=== PATIENT | female | born 1990 | race Caucasian/White ===

== ENCOUNTER 2019-07-16 17:32 | Emergency (ER) | payer OTHER, SELFPAY ==
[2019-07-16 17:32] VITALS: BP 122/77; PULSE 81; RESP 16; TEMP 36.7; BMI 27.4
--- NOTE | 2019-07-16 17:55 | ED.DCSUM_ITS ---
- ER Visit Summary Date of Service: 07/16/19 Chief Complaint: Right thumb laceration History of Present Illness: The patient is a 28 F presenting with right thumb laceration. Patient was washing a dish and cut her right thumb on a broken piece of glass. She states it was one large piece of glass. She is right- handed. Tetanus is up-to-date. No other complaints. Physical Examination: Vitals are stable. Patient is afebrile. Alert no acute distress. HEENT exam is unremarkable. Lungs are clear and equal bilaterally. Heart is regular rate and rhythm. Extremities 2 cm laceration proximal right thumb. Tendon function is intact. Normal sensation. Normal cap refill. Skin is warm and dry. No focal neurologic deficit. Remainder of exam is unremarkable. Emergency Department Course and Treatment: LET was applied. Wound was irrigated and explored. Anesthetized with local lidocaine. 4, 5-0 simple sutures were placed. Patient tolerated this well. Advised wound care instructions. Advised to return to the ED for worsening complaints. Disposition: Discharge home Impression: Right thumb laceration, laceration repair This note was generated with [employer] dictation software. It may contain incorrect words, spelling, and punctuation that were not noted in review of the chart prior to signing ED Disposition - Plan for ED Patient: Instructions: LACERATION, Hand Referrals: Monica Yoder MD [Primary Care Provider] -
--- NOTE | 2019-07-16 17:57 | ED.DEP ---
ED Disposition - Plan for ED Patient: Instructions: LACERATION, Hand Referrals: Monica Yoder MD [Primary Care Provider] -
[2019-07-16] MEDS: Lidocaine/Epi/Tetracaine 50 ML 1 APPLIC TOPICAL (18:01)
[2019-07-16 18:51] VITALS: RESP 16
--- NOTE | 2019-07-16 18:52 | ED.RN ---
REVIEWED D/C INSTRUCTIONS, FOLLOW UP CARE, AND S/S THAT WOULD WARRANT A RETURN TO THE ED WITH PT. PT VERBALIZED AN UNDERSTANDING AND DENIES FURTHER QUESTIONS FOR THIS RN. PT SKIN WARM/DRY, RESP EVEN AND UNLABORED, PT A&O X 3, NO DISTRESS NOTED. PT AMBULATED OUT OF ED, GAIT STEADY.
== END 2019-07-16 18:53 | disposition home or self-care (01) ==
LOC: ED 18:17
PROVIDERS: Emergency Provider Emergency Medicine; Family Provider Internal Medicine; PCP Internal Medicine
DX: S61.011A Laceration without foreign body of right thumb without damage to nail, initial encounter (principal); W25.XXXA Contact with sharp glass, initial encounter
CPT/HCPCS: 12001; 99284

== ENCOUNTER 2019-09-08 07:08 | Day surgery (SDC) | payer OTHER, SELFPAY ==
--- NOTE | 2019-08-23 11:24 | HP.PCM_ITS ---
History and Physical Date of Admission: 09/08/19 Silvia Caldwell Physician OPHTHALMOLOGY TECHNICIAN H&P Signed Encounter Date: 08/22/2019 Expand All Collapse All Hide copied text Moni for details Nakita Collins is a 29 year old female who presents for imbedded IUD and Polyp- requesting permanent sterilization. Pt patient had attempted removal of the Mirena IUD but was embedded in the lower endocervical canal. Patient did not tolerate the exam well without anesthesia. Patient had a polyp noted on endosee. Pt understands risk of regret with tubal ligation. Pt denies CP, SOB, dizziness. ? PAST MEDICAL HISTORY PAST MEDICAL HISTORY Diagnosis Date ? Back pain ? ? Multiple sclerosis (HCC) ? ? PAST SURGICAL HISTORY PAST SURGICAL HISTORY Procedure Laterality Date ? NONE ? ? ? PAST SURGICAL HISTORY OF Right ? ? sutures right thumb from broke glass doing dishes ? FAMILY HISTORY FAMILY HISTORY Problem Relation Age of Onset ? Cancer Mother ? ? brain-ependymoma ? Stroke Maternal Grandmother ? ? Heart Maternal Grandfather ? ? SOCIAL HISTORY Social History ? Tobacco Use ? Smoking status: Current Every Day Smoker ? ? Packs/day: 0.25 ? ? Types: Cigarettes ? Smokeless tobacco: Never Used ? Tobacco comment: smokes 5 cigs a day. Substance Use Topics ? Alcohol use: Yes ? ? Comment: rarely ? Drug use: Yes ? ? Comment: weed x 5 weekly ? CURRENT MEDICATIONS Current Outpatient Medications Medication Sig ? simethicone, chewable (MYLICON) 80 mg chewable tablet Take 1 tablet by mouth every 6 hours as needed. ? ibuprofen (MOTRIN) 600 mg tablet Take 1 tablet by mouth every 6 hours as needed. FOR PAIN. ? levonorgestrel (MIRENA) 20 mcg/24 hours (5 yrs) 52 mg IUD 1 Each by INTRAUTERINE route one time only. ? ergocalciferol, vitamin D2, (VITAMIN D2 ORAL) Take 1 tablet by mouth once daily. ? ibuprofen (IBU-200) 200 mg tablet Take 200 mg by mouth as directed. ? VITAMIN D 50,000 unit capsule Take 50,000 Units by mouth once each week. ? ? No current facility-administered medications for this visit. ? Allergies As of Date: 08/22/2019 (No Known Allergies) Fully Assessed 08/22/2019 ? ? REVIEW OF SYSTEMS Abdomen: no pain Bladder: no dysuria.. Expanded ROS: GENERAL: No weight loss, malaise or fevers Allergies and current medication updated:Yes ? EXAM: BP 110/64 Ht 5' 4.5 (1.64m) Wt 156 lb (70.8kg) BMI 26.37 kg/(m^2). ? GENERAL: pleasant, female in no apparent distress HEENT: Normocephalic, atraumatic, mucus membranes moist and no lesions NECK: full range of motion DERMATOLOGY: Normal, without lesions, non-icteric and non-hirsute CARDIAC: regular rate and rhythm CHEST: Clear to auscultation Normal inspiratory effort NEURO: alert and oriented x3,exam grossly non-focal EXTREMITIES: normal ? ASSESSMENT AND PLAN: Encounter Diagnosis ? ? ICD-10-CM ? 1. Displacement of intrauterine contraceptive device, subsequent encounter T83.32XD ? 2. Abnormal uterine bleeding (AUB) N93.9 ? 3. Endometrial polyp N84.0 ? 4. Sterilization Z30.2 ? ? Pt has been counseled on risks/benefits and alternatives of surgery including but not limited to anesthesia, bleeding, infection, injury to pelvic structures including bowel, bladder, ureters and vessels. Pt wishes to proceed with surgery at this time. ? Declines post op narcotics. Motrin and mylicon ordered ? ? Silvia Winters MD ? Office Visit on 08/22/2019
[2019-09-08 07:23] VITALS: BP 114/72; PULSE 71; RESP 16; TEMP 37; O2SAT 99; BMI 27.5
--- NOTE | 2019-09-08 07:30 | FALS_PTH ---
PATIENT: IGOR STARR LOC: [facility] [place] U#:[id number] AGE/SX: 29/F ROOM: RE09/08/[address]: Dr. Silvia Winters, MDDOB: 1990 BED: DIS: 09/08/2019 SPEC #: [id number] RECD: 09/08/19 11:18 STATUS: JOHANA REDi #: [id number] DAYANA: 09/08/19 07:[address]: Silvia Winters DEPT: SURGICAL PATHOLOGY RECD BY: Alec Gonzalez ENTERED: 09/08/19 13:24 SP TYPE: FALL TUBES OTHR DR: Dr. Monica Yoder MD Tissues: A - Fallopian tube B - Endometrium, NOS Procedures: Surgery Specimen Level II Surgery Specimen Level IV HEADER OPERATION: Hysteroscopy, D & C Symphion, polypectomy, IUD PRE-OP DIAGNOSIS: Displacement of IUD; abnormal uterine bleeding; endometrial polyp TISSUE SUBMITTED: A - Bilateral fallopian tubes, B - Endometrial curettings and polyp MICROSCOPIC DIAGNOSIS A. Right and left fallopian tubes, salpingectomies: Two complete cross-sections of fallopian tubes. Fragments of fibroma. See comment. B. Endometrium, curettings and polyp: Polypoid fragments of secretory endometrium. Scant strips of benign superficial endocervix. AM:osorio 09/09/19 COMMENT A. The fragments of fibroma are consistent with ovarian origin. Clinical correlation is suggested. MICROSCOPIC DESCRIPTION Slides are reviewed. GROSS DESCRIPTION A - Received is one container labeled with the patient's name and designated bilateral fallopian tubes. The specimen consists of two tubular pieces of pink-gil soft tissue consistent with portion of fallopian tube measuring 2 and 4 cm in length and 0.5 cm in diameter. One of the pieces of fallopian tube with fimbrial end measures 2 cm in length and 0.6 cm in diameter. Three additional pieces of tissue are also present, two of which are consistent with fimbrial end measuring in aggregate 2.5 x 2 x 0.5 cm. Sections do not reveal any mass lesion. [employer] Operator sections are submitted in two cassettes. B - Received in fixative is one container labeled with the patient's name and designated endometrial curettings and polyp. The specimen consists of multiple irregular fragments of hemorrhagic soft tissue that in aggregate measure 5 x 3 x 0.3 cm. The entire specimen is submitted in two cassettes. / SJ:rg 09/08/19 TC: 5 CPT: 85548 x2, [id number]
[2019-09-08] MEDS: Lactated Ringers 1,000 ML 100 ML IV (07:33)
[2019-09-08 07:34] LABS: Hematocrit 40.6 % (37-47); Hemoglobin 13.6 g/dL (12.0-15.0); Mean Corp Hgb Conc 33.5 g/dL (32-36); Mean Corpuscular Hgb 31.8 pg (27.0-32.0); Mean Corpuscular Volume 94.9 fL (81-99); Mean Platelet Vol. 10.1 fl (6.2-12.0); Platelet Count 244 K/mm3 (150-450); RBC Distribution Width CV 12.7 % (11.6-14.6); RBC Distribution Width SD 44.1 fl (35.1-43.9); Red Blood Count 4.28 M/mm3 (4.2-5.4); White Blood Count 6.9 K/mm3 (4.4-11.0)
[2019-09-08 07:48] LABS: Internal QC Validated? YES +Cl - CLEAR BKGD; Pregnancy, Serum, hCG Quali. NEGATIVE Negative
[2019-09-08] MEDS: Bupivacaine Mpf 0.5% 30 ML VIAL (08:13)
--- NOTE | 2019-09-08 08:57 | PCM.OPRPT ---
Report of Operation Date of Procedure: 09/08/19 Pre-Operative Diagnosis: desires sterilization, EM polyp, AUB, Mirena IUD strings lost Post-Operative Diagnosis: same Surgery/Procedure Performed:: laparoscopic B/L salpingectomy, Hysteroscopy, D&C, polypectomy, Removal of mirena IUD geosciences professor: Blaire Price Type of Anesthesia:: General Special Medications: 0.5% marcaine Specimen's removed: bilateral fallopian tubes, EMC with polyp Drains: none Estimated Blood Loss (mL): 10 Fluids Replaced: 600 Description of Procedure: After informed consent was obtained patient was taken to the operating room she was placed in supine position she was given anesthesia. She was then placed in the [facility] stirrups and she was prepped and draped in normal sterile fashion. Bladder was drained prior to the start of procedure approximately 50cc of clear yellow urine was expelled. At this time attention was turned to the vaginal portion where weighted speculum placed at posterior fornix vagina single-tooth tenaculum was used to gently grasp the internal the cervix. uterus was gently sounded to approximately 8cm. Uterine manipulator was placed without difficulty. Legs then placed in parallel with the abdomen the tenaculum and the weighted speculum were removed. 2 towel clamps were placed superior to umbilicus. After Marcaine was injected intra umbilical a small incision was made and a 5 mm trocar was placed under direct visualization. CO2 gas was used to insufflate the intra-abdominal cavity. Upon inspection no gross abnormalities uterus tubes and ovaries appeared to be normal. At this time then the RLQ and LLQ ports were placed again Marcaine was injected small incision was made a knife and the 5 mm trocar was placed. At this time then tubes were traced back to the fimbriated ends. Ligasure was used to coagulate and ligate along mesosalpinx bilaterally until tubes removed completely. Good hemostasis was appreciated. At this time procedure was deemed complete successful. The gas was desufflated on from the intra-abdominal cavity. The trochars were removed. Skin was closed using 4-0 Monocryl in a subcutaneous fashion. Dermabond glue was placed. Instrument lap and needle counts were correct ?2. The uterine manipulator was removed. Tenaculum placed and cervix was dilated. Once adequate dilatation was achieved the hysteroscope was inserted using normal saline as distention medium. On hysteroscopy IUD was noted and small polyp on anterior aspect. Both tubal ostia were visualized. IUD removed using polyp grasper thru operative time. Gentle sharp curettage performed. Symphion resector used to remove polyp and perform curettage. procedure completed. Tenaculum removed. Weighted speculum was removed. Vaginal sweep was performed is negative. There were no complications. Anticipated normal postoperative course for this patient. Instrument and lap count were correct ?2. Grafts/Implants Used: none - Complications none - Admit VTE Documentation VTE Present on Admission: Yes VTE Mechan Device Prophylaxis: [facility] [place] VTE Pharm Prophylaxis ordered?: No
[2019-09-08 09:15] VITALS: BP 112/89; BP 114/72; PULSE 100; RESP 16; TEMP 36.5; O2SAT 100
--- NOTE | 2019-09-08 09:16 | DCINST_ITS ---
Discharge Diet: No Restrictions, - - Increase fluid intake for 48 hours. Discharge Activity: Return to Normal Activity, May Drive - when you are no longer taking narcotic pain medications., May Shower, May Take a Tub Bath - in 7 days., - - Ambulate often the next week after surgery. May resume sexual activity in: 2 weeks Lifting Restrictions: 20 Additional Activity Instructions:: Nothing in the vagina for the next 5 days. Call your doctor if your incision/area has: Continuous Slow Oozing, Sudden Increased Bleeding, Increased Pain/ Swelling, Increased Redness, Foul Smelling Discharge, Swelling at the incision site Call your doctor if you observe: Fever of 101 or Higher Cleanse incision/area with: - - skin glue- do not pick off. may let soap and water run over incision sites. Allergies/Adverse Reactions: Allergies No Known Allergies Allergy (Verified 09/08/19 07:23) Medications to take at Discharge Ergocalciferol [Vitamin D] 1 tab PO QWEEK 07/16/19 Cholecalciferol (Vitamin D3) [Vitamin D3] 1,000 unit PO DAILY 08/31/19 Cyanocobalamin (Vitamin B-12) [Vitamin B-12] 1,000 mcg PO DAILY 08/31/19 Ocrelizumab [Ocrevus] 300 mg IV .Q6MO 08/31/19 Orders to be completed after discharge: ,Urine Time Frame: 09/08/19, Facility: [facility], Location: Laboratory Primary Care Physician: Monica Yoder MD [Primary Care Provider] - Test Results: Test results from this visit will be discussed in further detail at your follow- up appointment, if applicable. Please Follow Up With: Silvia Winters MD When: 2 weeks
[2019-09-08 09:30] VITALS: BP 112/66; BP 114/72; PULSE 67; RESP 16; O2SAT 96
[2019-09-08 09:45] VITALS: BP 114/72; BP 96/57; PULSE 65; RESP 16; TEMP 36.7; O2SAT 98
[2019-09-08 11:29] VITALS: BP 114/72; BP 97/60; PULSE 55; RESP 16; TEMP 36.4; O2SAT 100
== END 2019-09-08 11:36 | disposition home or self-care (01) ==
LOC: SDC 07:08 → AC 07:09
PROVIDERS: Anesthesiology; Family Provider Internal Medicine; PCP Internal Medicine; Referring Provider Obstetrics & Gynecology; Visit Provider Obstetrics & Gynecology
PROC: 0UB98ZZ Excision of Uterus, Via Natural or Artificial Opening Endoscopic (ICD-10-PCS; CPT 58558; principal; 2019-09-08 07:15)
PROC: (CPT 58661; 2019-09-08 07:15)
DX: Z30.2 Encounter for sterilization (principal); T83.32XA Displacement of intrauterine contraceptive device, initial encounter; N93.9 Abnormal uterine and vaginal bleeding, unspecified; N84.0 Polyp of corpus uteri; G35 Multiple sclerosis; F17.210 Nicotine dependence, cigarettes, uncomplicated
CPT/HCPCS: 00840; 58301; 58558; 58661; 36415; 84703; 85027; 88302; 88305; J7120; J2405